=== PATIENT | female | born 2000 | race Caucasian/White ===

== ENCOUNTER 2018-09-09 11:14 | Emergency (ER) | END 2018-09-09 12:39 | disposition home or self-care (01) ==

== ENCOUNTER 2018-11-28 13:08 | Emergency (ER) | payer BC ==
[~2018-11-28] VITALS: Ht 157.5 cm; Wt 54.2 kg
[~2018-11-28 13:08] MED LIST: ACET325T33 PO; AMOX1TAB10 PO; IBUP-1542 PO
[2018-11-28 13:31] VITALS: BP 122/75; PULSE 85; RESP 18; Ht 157.5 cm; Wt 54.2 kg
[2018-11-28] MEDS ORDERED: VIGA RIGHT EYE (15:21)
--- NOTE | 2018-11-28 17:15 | ERD ---
ER Documentation Chief Complaint Chief Complaint RIGHT EYE PAIN & SWELLING X2 DAYS HPI 18-year-old female patient with no significant past medical history presents to the ED complaining of right eye swelling that started about 2 days ago. Patient reports that she said that she has not shared any makeup. Denies any eye trauma. Denies any vision loss or diplopia. Denies any fever, chills, nausea, vomiting, diarrhea, neck stiffness. Reports that she wears contacts. ROS All systems reviewed and are negative except as per history of present illness. Medications Home Meds Active Scripts Moxifloxacin Hcl* (Vigamox*) 0.5% - 3 Ml Opht, 1 DROP RIGHT EYE TID for 7 Days, EA Prov:KAYCEE ALONSO PA-C 11/28/18 Acetaminophen* (Tylenol*) 325 Mg Tablet, 2 TAB PO Q6 PRN for PAIN AND OR ELEVATED TEMP, #20 TAB Prov:EWELINA BENSON PA-C 09/09/18 Amoxicillin/Potassium Clav (Amox-Clav 875-125 mg Tablet) 875-125 mg Tab, 1 TAB PO BID for 7 Days, #14 TAB Prov:EWELINA BENSON PA-C 09/09/18 Ibuprofen* (Motrin*) 600 Mg Tab, 600 MG PO Q6, #30 TAB Prov:EWELINA BENSON PA-C 09/09/18 Allergies Allergies: Coded Allergies: No Known Allergy (Unverified , 09/09/18) PMhx/Soc Medical and Surgical Hx: pt denies Medical Hx, pt denies Surgical Hx History of Surgery: No Anesthesia Reaction: No Hx Neurological Disorder: No Hx Respiratory Disorders: No Hx Cardiac Disorders: No Hx Psychiatric Problems: No Hx Miscellaneous Medical Probl: No Hx Alcohol Use: No Hx Substance Use: No Hx Tobacco Use: No FmHx Family History: No diabetes, No coronary disease Physical Exam Vitals Vital Signs Date Temp Pulse Resp B/P (MAP) Pulse Ox O2 O2 Flow FiO2 Time Delivery Rate 11/28/18 98.2 85 18 122/75 97 13:31 (91) Physical Exam Const: Zyu-pob-bozrtorax, well-nourished. In no acute distress. Head: Atraumatic, normocephalic Eyes: Normal Conjunctiva without injection. No purulent discharge. PERRLA. EOMI. Erythematous stye noted. No surrounding erythema, fluctuance, induration, purulent discharge noted. ENT: Normal external ear. Ear canal without erythema. Tympanic membrane pearly evans without effusion or bulging. Nasal canal clear with normal turbinates. Moist oropharynx without tonsillar exudates. Non-erythematous pharynx. Uvula midline. No drooling. No trismus. Neck: No cervical midline tenderness. Full range of motion. No meningismus. No cervical lymphadenopathy. No JVD. Resp: Clear to auscultation bilaterally. No wheezing, rhonchi, rales, or crackles. No accessory muscle use. No retractions. Cardio: Regular rate and rhythm. No murmurs, rubs or gallops. Skin: Normal skin turgor. No petechiae or rashes Ext: No cyanosis, or edema. Distal pulses intact bilaterally. Neur: Awake and alert. Normal gait. Normal coordination. Cranial Nerves II- VII intact. Normal finger to nose. Muscle strength 5/5. Sensation intact. Psych: Normal Mood and Affect Procedures/MDM 18-year-old female patient with no significant past medical history presents to ED complaining of right eye pain, swelling that started 2 days ago. Patient is afebrile and nontoxic-appearing. Patient has right lower lid sty. Since patient is a contact wearer, patient will be prescribed Vigamox. Low suspicion for ruptured globe, retinal detachment, periorbital cellulitis, acute angle closure glaucoma, deep space infection, iritis, traumatic hyphema, conjunctivitis, subconjunctival hemo rrhage, corneal abrasion, corneal ulcer, pterygium, hypopyon, blepharitis, hordeolum, chalazion, or other emergent conditions. Diagnosis: Sty Discharge medications: Moxifloxacin Follow up with primary care physician in 1-2 days. Warm compresses recommended. Instructed patient to return to the ED sooner for any worsening symptoms. Patient's questions were answered. Patient is hemodynamically stable. Patient understood and agreed with discharge plan. Patient discharged stable. Disclaimer: Inadvertent spelling and grammatical errors are likely due to EHR/dictation software use and do not reflect on the overall quality of patient care. Also, please note that the electronic time recorded on this note does not necessarily reflect the actual time of the patient encounter. Departure Diagnosis: Primary Impression: Sty Laterality: right Eyelid: lower Qualified Codes: H00.012 - Hordeolum ex ternum right lower eyelid Condition: Stable Patient Instructions: Sty Referrals: PENDING SALE TO [facility] YOU HAVE RECEIVED A MEDICAL SCREENING EXAM AND THE RESULTS INDICATE THAT YOU DO NOT HAVE A CONDITION THAT REQUIRES URGENT TREATMENT IN THE EMERGENCY DEPARTMENT. FURTHER EVALUATION AND TREATMENT OF YOUR CONDITION CAN WAIT UNTIL YOU ARE SEEN IN YOUR DOCTORS OFFICE WITHIN THE NEXT 1-2 DAYS. IT IS YOUR RESPONSIBILITY TO MAKE AN APPOINTMENT FOR FOLOW-UP CARE. IF YOU HAVE A PRIMARY DOCTOR --you should call your primary doctor and schedule an appointment IF YOU DO NOT HAVE A PRIMARY DOCTOR YOU CAN CALL OUR PHYSICIAN REFERRAL HOTLINE AT IF YOU CAN NOT AFFORD TO SEE A PHYSICIAN YOU CAN CHOSE FROM THE FOLLOWING [facility] [address] [facility] [address] [facility] [address] [facility] [address] [facility] [address] [facility]. [facility] [address] [facility]. [facility] YOU HAVE RECEIVED A MEDICAL SCREENING EXAM AND THE RESULTS INDICATE THAT YOU DO NOT HAVE A CONDITION THAT REQUIRES URGENT TREATMENT IN THE EMERGENCY DEPARTMENT. FURTHER EVALUATION AND TREATMENT OF YOUR CONDITION CAN WAIT UNTIL YOU ARE SEEN IN YOUR DOCTORS OFFICE WITHIN THE NEXT 1-2 DAYS. IT IS YOUR RESPONSIBILITY TO MAKE AN APPOINTMENT FOR FOLOW-UP CARE. IF YOU HAVE A PRIMARY DOCTOR --you should call your primary doctor and schedule and appointment IF YOU DO NOT HAVE A PRIMARY DOCTOR YOU CAN CALL OUR PHYSICIAN REFERRAL HOTLINE AT . IF YOU CAN NOT AFFORD TO SEE A PHYSICIAN YOU CAN CHOSE FROM THE FOLLOWING [facility] INSTITUTIONS: [facility] [address] [place] [address] [facility] [address] [place] [address] [facility] [place] [address] [place] [address] [facility] Hours: Wed - Wed 9:00 AM - 5:00 PM Additional Instructions: Call your primary care doctor TOMORROW for an appointment during the next 2-3 days.See the doctor sooner or return here if your condition worsens before your appointment time. KAYCEE ALONSO PA-C Nov 28, 2018 17:15
== END 2018-11-28 16:01 | disposition home or self-care (01) ==
LOC: FTE 13:08
DX: H00.012 Hordeolum externum right lower eyelid (principal)
CPT/HCPCS: 99283

== ENCOUNTER 2019-05-31 | Emergency (ER) | payer SELFPAY ==
[~2019-05-31] VITALS: Ht 162.6 cm; Wt 57.6 kg
[~2019-05-31] MED LIST changes: +VIGA RIGHT EYE
[2019-05-31 00:04] VITALS: BP 146/86; PULSE 82; RESP 18; Ht 162.6 cm; Wt 57.6 kg
== END 2019-05-31 01:38 | disposition left against medical advice (07) ==
LOC: FTE
DX: Z53.21 Procedure and treatment not carried out due to patient leaving prior to being seen by health care provider (principal)